=== PATIENT | female | born 1980 | race Caucasian/White ===

== ENCOUNTER 2016-09-14 12:11 | Inpatient (IN) | payer OTHER ==
[~2016-09-14] VITALS: Ht 157.5 cm; Wt 100.0 kg
[~2016-09-14 12:11] MED LIST: ACETAMINOPHEN-1 EAC1 PO; KEFLEX750 MG PO
[2016-09-14] MEDS ORDERED: BENADRYL50 MG PO (12:52)
[2016-09-14] MEDS ORDERED: PERCOCET 5/31 TABLET PO (12:54)
[2016-09-14] MEDS ORDERED: COMPAZINE10 MG PO (12:54)
[2016-09-14] MEDS ORDERED: IMODIUM A-D2 M2 PO (12:55)
[2016-09-14] MEDS ORDERED: LOMOTIL TABLET1 EACH PO (12:55)
[2016-09-14] MEDS ORDERED: AUGMENTIN875 MG PO (12:59)
[2016-09-14 13:28] LABS: BASOPHIL COUNT 0.1 K/uL (0-0.1); EOSINOPHIL (%) 0 % (0-5); HEMATOCRIT 39.6 % (36.0-46.0); IMMATURE GRANULOCYTE (%) 1.5 % (0.0-0.7); IMMATURE GRANULOCYTE COUNT 0.3 K/uL; INSTRUMENT ABS NEUTROPHIL CT 14.3 K/uL; LYMPHOCYTE COUNT 2.9 K/uL (1.0-2.8); MCHC 35.1 G/DL (30.0-36.0); MEAN PLAT.VOLUME 10.3 uM^3 (9.5-12.4); MONOCYTE (%) 7.6 % (3-12); MONOCYTE COUNT 1.4 K/uL (0-0.8); NEUTROPHIL (%) 75.6 % (45-76); NEUTROPHIL COUNT 14.3 K/uL (1.8-6.4); RBC DIS.WIDTH-CV 13.1 % (11.8-14.6); RBC DIS.WIDTH-SD 36.2 % (39-53)
[2016-09-14 13:34] LABS: PLATELET COUNT 716 K/uL (156-360); RED BLOOD COUNT 5.14 M/uL (3.80-5.20)
[2016-09-14 13:36] LABS: CHLORIDE 78 mEq/L (99-109)
[2016-09-14 13:38] LABS: GLUCOSE 187 mg/dL (70-99)
[2016-09-14 13:39] LABS: ANION GAP 22 MEQ/L (2-14)
[2016-09-14 13:40] LABS: TOTAL BILIRUBIN 0.7 mg/dL (0.0-1.0)
[2016-09-14 13:41] LABS: ALKALINE PHOSPHATASE 262 IU/L (3-129)
[2016-09-14 13:42] LABS: GFR ESTIMATE (CALCULATED) 24 mL/min/
[2016-09-14 13:43] LABS: UREA NITROGEN (BUN) 73 mg/dL (9-23)
[2016-09-14 13:52] LABS: SODIUM 118 mEq/L (136-147)
[2016-09-14 13:54] LABS: POTASSIUM 7.4 mEq/L (3.7-5.4)
[2016-09-14 14:12] LABS: ADD MIUA? YES; BILIRUBIN NEGATIVE; BLOOD NEGATIVE; COLOR YELLOW ((YELLOW)); GLUCOSE (STRIP) NEGATIVE; KETONES NEGATIVE; LEUKOCYTES NEGATIVE; NITRITE NEGATIVE; PROTEIN (STRIP) 100; UROBILINOGEN 0.2 MG/DL (0.2-1.0)
[2016-09-14 14:15] LABS: BACTERIA RARE /HPF; EPITHELIAL CELLS 1+ /HPF; HYALINE CASTS 20-30 /LPF; MUCUS TRACE /LPF; RED BLOOD CELLS 0-5 /HPF (0-5); UCUL ADDED? NO; WHITE BLOOD CELLS 0-5 /HPF (0-5)
[2016-09-14 14:58] LABS: CHLORIDE 83 mEq/L (99-109); SODIUM 122 mEq/L (136-147)
[2016-09-14 15:00] LABS: GLUCOSE 174 mg/dL (70-99)
[2016-09-14 15:01] LABS: ANION GAP 19 MEQ/L (2-14); POTASSIUM 5.3 mEq/L (3.7-5.4)
[2016-09-14 15:04] LABS: GFR ESTIMATE (CALCULATED) 28 mL/min/
[2016-09-14 15:05] LABS: UREA NITROGEN (BUN) 70 mg/dL (9-23)
[2016-09-14 20:30] VITALS: BP 118/64
[2016-09-14 22:01] LABS: ALKALINE PHOSPHATASE 166 IU/L (3-129); ANION GAP 15 MEQ/L (2-14); CHLORIDE 90 MEQ/L (99-109); GLUCOSE 156 mg/dL (70-99); MAGNESIUM 2.1 mg/dl (1.3-2.7); PREALBUMIN 32.8 mg/dL (10-40); SAMPLE HEMOLYSIS CHECK 0; SAMPLE ICTERIC CHECK 0; SAMPLE LIPEMIA CHECK 0; SODIUM 125 MEQ/L (136-147); TOTAL BILIRUBIN 0.6 MG/DL (0.0-1.0); UREA NITROGEN (BUN) 56 mg/dL (9-23)
[2016-09-14 22:06] LABS: GFR ESTIMATE (CALCULATED) 45 mL/min/; POTASSIUM 4.2 MEQ/L (3.7-5.4)
[2016-09-14 22:15] LABS: FERRITIN 104 NG/ML (10-291)
[2016-09-15 06:00] VITALS: BP 120/62
[2016-09-15 07:30] VITALS: BP 129/73
[2016-09-15 07:36] LABS: ALKALINE PHOSPHATASE 160 IU/L (3-129); ANION GAP 15 MEQ/L (2-14); CHLORIDE 92 MEQ/L (99-109); GFR ESTIMATE (CALCULATED) 54 mL/min/; GLUCOSE 142 mg/dL (70-99); SAMPLE HEMOLYSIS CHECK 1; SAMPLE ICTERIC CHECK 0; SAMPLE LIPEMIA CHECK 0; SODIUM 127 MEQ/L (136-147); TOTAL BILIRUBIN 0.6 MG/DL (0.0-1.0); UREA NITROGEN (BUN) 43 mg/dL (9-23)
[2016-09-15 07:37] LABS: POTASSIUM 4.9 MEQ/L (3.7-5.4)
[2016-09-15 08:33] LABS: Estimated Average Glucose 134 mg/dL (70-123); HEMOGLOBIN A1c (GLYCOHEMOGLOB) 6.3 % HGB (Below 5.7)
[2016-09-15 09:29] LABS: HEMATOCRIT 31.8 % (36.0-46.0); MCH 27.2 PG (29.0-34.0); MCHC 33.3 G/DL (30.0-36.0); RBC DIS.WIDTH-CV 13.6 % (11.8-14.6); RBC DIS.WIDTH-SD 39.8 % (39-53)
[2016-09-15 09:30] LABS: MCV 81.5 FL (83-99); WHITE BLOOD COUNT 10.6 K/uL (4.1-10.2)
[2016-09-15 09:57] LABS: MEAN PLAT.VOLUME 9.9 uM^3 (9.5-12.4); PLAT.SUFFICIENCY INCREASED
[2016-09-15 10:07] LABS: PLATELET COUNT 471 K/uL (156-360)
[2016-09-15 12:44] VITALS: BP 118/69
[2016-09-15 16:39] VITALS: BP 117/71
[2016-09-15 20:36] VITALS: BP 125/66
[2016-09-15 22:51] VITALS: BP 120/65
[2016-09-16 04:04] VITALS: BP 121/68
[2016-09-16 07:42] VITALS: BP 114/65
[2016-09-16 07:50] LABS: ANION GAP 10 MEQ/L (2-14); CHLORIDE 99 MEQ/L (99-109); GFR ESTIMATE (CALCULATED) > 59 mL/min/; GLUCOSE 111 mg/dL (70-99); MAGNESIUM 2.1 mg/dl (1.3-2.7); POTASSIUM 4.9 MEQ/L (3.7-5.4); SAMPLE HEMOLYSIS CHECK 0; SAMPLE ICTERIC CHECK 0; SAMPLE LIPEMIA CHECK 0; SODIUM 132 MEQ/L (136-147)
[2016-09-16 07:57] LABS: UREA NITROGEN (BUN) 18 mg/dL (9-23)
[2016-09-16 11:17] VITALS: BP 113/60
[2016-09-16 14:38] VITALS: BP 117/61
[2016-09-16 20:00] VITALS: BP 120/69
[2016-09-17 00:08] VITALS: BP 113/58
[2016-09-17 05:45] VITALS: BP 108/59
[2016-09-17 07:00] LABS: HEMATOCRIT 32.2 % (36.0-46.0); MCH 26.9 PG (29.0-34.0); MCV 84.1 FL (83-99); MEAN PLAT.VOLUME 9.7 uM^3 (9.5-12.4); PLATELET COUNT 404 K/uL (156-360); RBC DIS.WIDTH-CV 13.3 % (11.8-14.6); RBC DIS.WIDTH-SD 40.7 % (39-53); RED BLOOD COUNT 3.83 M/uL (3.80-5.20)
[2016-09-17 07:21] LABS: ANION GAP 9 MEQ/L (2-14); CHLORIDE 98 MEQ/L (99-109); GFR ESTIMATE (CALCULATED) > 59 mL/min/; GLUCOSE 107 mg/dL (70-99); POTASSIUM 4.7 MEQ/L (3.7-5.4); SAMPLE HEMOLYSIS CHECK 0; SAMPLE ICTERIC CHECK 0; SAMPLE LIPEMIA CHECK 0; SODIUM 132 MEQ/L (136-147); UREA NITROGEN (BUN) 9 mg/dL (9-23)
[2016-09-17 09:55] VITALS: BP 113/66
[2016-09-17 11:49] VITALS: BP 114/57
[2016-09-17 15:35] VITALS: BP 107/58
[2016-09-17 19:20] VITALS: BP 93/51
[2016-09-18 00:20] VITALS: BP 105/59
[2016-09-18 04:30] VITALS: BP 98/55
[2016-09-18 07:11] LABS: HEMATOCRIT 31.9 % (36.0-46.0); MCH 27.3 PG (29.0-34.0); MCV 85.3 FL (83-99); MEAN PLAT.VOLUME 9.7 uM^3 (9.5-12.4); PLATELET COUNT 404 K/uL (156-360); RBC DIS.WIDTH-CV 13.2 % (11.8-14.6); RBC DIS.WIDTH-SD 41.1 % (39-53); RED BLOOD COUNT 3.74 M/uL (3.80-5.20); WHITE BLOOD COUNT 12.6 K/uL (4.1-10.2)
[2016-09-18 07:40] LABS: ANION GAP 9 MEQ/L (2-14); CHLORIDE 98 MEQ/L (99-109); GFR ESTIMATE (CALCULATED) > 59 mL/min/; GLUCOSE 118 mg/dL (70-99); POTASSIUM 4.9 MEQ/L (3.7-5.4); SAMPLE HEMOLYSIS CHECK 0; SAMPLE ICTERIC CHECK 0; SAMPLE LIPEMIA CHECK 0; SODIUM 132 MEQ/L (136-147); UREA NITROGEN (BUN) 9 mg/dL (9-23)
[2016-09-18 08:17] VITALS: BP 114/72
[2016-09-18 11:37] VITALS: BP 104/58
== END 2016-09-18 14:50 | disposition home health service (06) | DRG 683 ==
LOC: EME 12:11 → EDOF 18:17 → 4EAST 18:17
PROVIDERS: Emergency Medicine; Hospitalist; Internal Medicine; Physician Assistant
DX: N17.9 Acute kidney failure, unspecified (principal); T81.4XXA Infection following a procedure, initial encounter; T81.30XA Disruption of wound, unspecified, initial encounter; K91.2 Postsurgical malabsorption, not elsewhere classified; E87.1 Hypo-osmolality and hyponatremia; E87.5 Hyperkalemia; K50.90 Crohn's disease, unspecified, without complications; E11.9 Type 2 diabetes mellitus without complications; J45.909 Unspecified asthma, uncomplicated; E66.9 Obesity, unspecified; S31.109A Unspecified open wound of abdominal wall, unspecified quadrant without penetration into peritoneal cavity, initial encounter; G89.29 Other chronic pain; Z93.3 Colostomy status; Z87.891 Personal history of nicotine dependence; Z68.39 Body mass index [BMI] 39.0-39.9, adult
CPT/HCPCS: 74176; 80048; 80048 91; 80053; 81003; 82607; 82728; 82746; 83036; 83605; 83735; 83930; 83935; 84100; 84134; 85025; 85027; 87040; 87070; 87075; 87077; 87186; 87205; 99281; 99285; J1170; J2543; J2765; J3370; J7030; J7050; S0028